=== PATIENT | female | born 2000 | race Caucasian/White ===

== ENCOUNTER 2023-07-02 11:19 | Emergency (ER) | payer OTHER ==
[~2023-07-02] VITALS: Ht 170.2 cm; Wt 108.9 kg
[2023-07-02 13:22] LABS: HEMATOCRIT 42.6 % (36.0-45.00); HEMOGLOBIN 14.8 g/dL (12.0-15.00); MEAN CELL VOLUME 84.7 fL (80.00-100.00); MEAN CORPUSCULAR HEMOGLOBIN 29.3 pg (27.00-32.0); MEAN CORPUSCULAR HGB CONC 34.6 g/dl (32.0-36.0); PLATELET COUNT 245 K/uL (150-450); RED BLOOD COUNT 5.03 M/uL (4.00-6.00); RED CELL DISTRIBUTION WIDTH 13.7 % (11.5-14.5)
[2023-07-02] MEDS ORDERED: TUSNEL LIQUID178 ML PO (14:26)
[2023-07-02] MEDS ORDERED: ZITHROMAX500 MG PO (14:26)
== END 2023-07-02 14:29 | disposition home or self-care (01) ==
LOC: ER 11:19
PROVIDERS: General Practice
DX: J06.9 Acute upper respiratory infection, unspecified (principal)

== ENCOUNTER 2024-01-08 09:35 | Emergency (ER) | payer OTHER ==
[~2024-01-08] VITALS: Ht 170.2 cm; Wt 117.9 kg
[~2024-01-08 09:35] MED LIST: TUSNEL LIQUID178 ML PO; ZITHROMAX500 MG PO
[2024-01-08] MEDS ORDERED: ACETAMINOPHEN 325 MG TABLET PO STA (14:27)
[2024-01-08] MEDS ORDERED: ACETAMINOPHEN 325 MG TABLET PO ONE (14:42)
== END 2024-01-08 16:02 | disposition home or self-care (01) ==
LOC: ER 09:36
DX: B34.9 Viral infection, unspecified (principal); J06.9 Acute upper respiratory infection, unspecified; R11.10 Vomiting, unspecified; Z20.822 Contact with and (suspected) exposure to COVID-19